=== PATIENT | male | born 1950 | race Caucasian/White ===

== ENCOUNTER → 2018-11-20 10:18 | Outpatient (CLI) | payer MEDICARE, OTHER, SELFPAY ==
--- NOTE | 2018-11-20 | DI.US.S_ITS ---
PROCEDURE: US RENAL COMPLETE INDICATIONS: PROSTATE CANCER TECHNIQUE: Real-time scanning was performed of the kidneys and bladder, with image documentation. COMPARISON: [facility], US, RENAL COMPLETE, 05/04/2016, 13:40. [facility], CT, CT-IVP, 07/30/2012, 8:41. FINDINGS: Kidneys: Kidneys are normal in size. Right kidney measures 12.0 cm long; left kidney measures 12.5 cm long. Right renal cortical thickness is 2.2 cm; left renal cortical thickness is 2.1 cm. Renal cortical echotexture is normal. No hydronephrosis or nephrolithiasis. No suspicious solid mass lesions. Right superior renal cortical cyst measuring 1.3 cm. Bladder: Neobladder present with 620 cc at time of exam. Miscellaneous: No free pelvic fluid. IMPRESSION: 1. 1.3 cm right renal cyst otherwise normal appearance of the kidneys. Dictated by: Mike SMITH Interpreted: Shad Carlson MD on 11/20/2018 at 12:56 Approved by: Shad Carlson M.D. on 11/20/2018 at 18:26
== END ==
PROVIDERS: PCP Internal Medicine; Visit Provider Urology
DX: C61 Malignant neoplasm of prostate (principal); N28.1 Cyst of kidney, acquired
CPT/HCPCS: 76770